=== PATIENT | male | born 1955 | race Caucasian/White ===

== ENCOUNTER 2017-09-18 21:06 | Emergency (ER) | payer BC ==
[~2017-09-18] VITALS: Ht 171.5 cm; Wt 92.4 kg
[2017-09-18 21:10] VITALS: TEMP 36.5; Ht 171.5 cm; Wt 92.4 kg
[2017-09-18] MEDS ORDERED: ONDANSETRON INJ 2 MG/ML 2 ML VIAL IV STA (21:18)
--- NOTE | 2017-09-18 21:25 | EMERGENCY ROOM VISIT NOTE ---
History Report prepared by Dean: John Godfrey Under the Supervision of: Dr. Terry Marcos D.O. First contact with patient: 21:14 Chief Complaint: KIDNEY STONE Stated Complaint: KIDNEY STONE R FLANK PAIN History of Present Illness The patient is a 62 year old male who presents to the Emergency Room with complaints of worsening right-sided flank pain that started 3 days ago. He states that he was in the [place] ED yesterday morning and was diagnosed with a 4 mm right distal ureter stone. He says that he has been taking Percocet , Zofran, and Flomax. The patient notes that the pain then worsened around 6 hours ago, and he has been having bad nausea with a few episodes of vomiting. He says that he last had Percocet around 5 hours ago. The patient adds that he has had some clots in his urine. He denies any fevers. The patient has a history of hypertension, hyperlipidemia, and hypothyroidism, and has a history of a right testicle removal. The patient does not drink alcohol or use tobacco products. Source of History: patient, family Onset: 3 days ago Position: other (right-sided flank) Quality: other (diagnosed with kidney stone) Timing: worsening Associated Symptoms: + nausea, + vomiting, + urinary symptoms (clots in urine), No fevers Review of Systems See HPI for pertinent positives & negatives. A total of 10 systems reviewed and were otherwise negative. Past Medical & Surgical Medical Problems: (1) HLD (hyperlipidemia) (2) HTN (hypertension) (3) Hypothyroidism Surgical Problems: (1) History of removal of testicle Family History No pertinent family history Social History Smoking Status: Never Smoker Smokeless Tobacco Use: No Alcohol Use: none Drug Use: none Current/Historical Medications Scheduled [id number]-Xiivmkeixve-Uqp C- (Glucosamine Chondroitin), 1 TAB PO QAM Hydrochlorothiazide (Hctz), 25 MG PO QAM Levothyroxine Sodium (Levothyroxine Sodium), 88 MCG PO QAM Lisinopril (Lisinopril), 5 MG PO QAM Potassium (Potassium), 396 MG PO QAM Pravastatin (Pravachol ), 20 MG PO HS Allergies Coded Allergies: No Known Allergies (Unverified , 09/18/17) Physical Exam Vital Signs Date Time Temp Pulse Resp B/P (MAP) Pulse Ox O2 Delivery O2 Flow Rate FiO2 09/18/17 22:44 61 16 119/75 94 Room Air 09/18/17 21:10 36.5 85 20 152/74 96 Room Air Physical Exam GENERAL: Patient is awake, alert, very anxious appearing. EYES: The conjunctivae are clear. The pupils are round and reactive. EARS, NOSE, MOUTH AND THROAT: The nose is without any evidence of any deformity. Mucous membranes are moist tongue is midline NECK: The neck is nontender and supple. RESPIRATORY: Normal respiratory effort is noted there is no evidence of wheezing rhonchi or rales CARDIOVASCULAR: Regular rate and rhythm noted there no murmurs rubs or gallops normal S1 normal S2 GASTROINTESTINAL: The abdomen is soft. Bowel sounds are present in all quadrants. Abdomen is nontender BACK: No midline tenderness appreciated. There was right CVA tenderness to percussion, range of motion appeared intact. MUSCULOSKELETAL/EXTREMITIES: There is no evidence of gross deformity full range of motion is noted in the hips and shoulders SKIN: There is no obvious evidence of any rash. There are no petechiae, pallor or cyanosis noted. NEUROLOGIC: Patient is awake alert and oriented x3. Medical Decision & Procedures ER Provider Diagnostic Interpretation: Radiology results as stated below per my review and radiologist interpretation: RETROPERITONEAL COMPLETE HISTORY: 62 years-old Male flank pain acute right-sided flank pain with cholelithiasis COMPARISON: KUB of same day TECHNIQUE: Multiple real-time sonographic images of the kidneys and urinary bladder were obtained assessing grayscale appearance and color flow FINDINGS: The right kidney measures 12.3 cm in length. Mild right-sided hydroureteronephrosis with proximal right ureter measuring 9 mm. No definite shadowing right-sided nephrolithiasis. No focal mass lesions noted within the right kidney. Cortical medullary differentiation preserved. Left kidney measures 11.0 cm in length. 4 mm calculus noted within the interpolar left kidney. No left-sided renal mass lesions or hydronephrosis. Urinary bladder is predominantly collapsed. IMPRESSION: 1. Mild right-sided hydroureteronephrosis suspicious for distal obstructing process. 2. 4 mm calculus of the interpolar left kidney without left-sided hydronephrosis. 3. Partially collapsed urinary bladder. The above report was generated using voice recognition software. It may contain grammatical, syntax or spelling errors. Electronically signed by: Pablito Maria M.D. 09/18/2017 10:56 PM Dictated Date/Time: 09/18/2017 10:54 PM KUB HISTORY: Acute right-sided abdominal pain with history of kidney stones ABDOMINAL PAIN/GI COMPARISON: None. FINDINGS: The bowel gas pattern is non-obstructive. There is no organomegaly. Bilateral nephrolithiasis with calculi measuring up to 3 mm on the left. There is either a single 4 mm or two separate 2 mm calcification within the right lower abdomen overlying the right L5 transverse process. Renal shadows are partially obscured by bowel gas. No pneumoperitoneum or pneumatosis. No fracture. IMPRESSION: 1. Bilateral nephrolithiasis with renal shadows partially obscured by bowel gas. 2. Either a single 4 mm or two separate 2 mm calcifications within the right lower abdomen overlying the right L5 transverse process suggest ureteral calculus or calculi. Electronically signed by: Pablito Maria M.D. 09/18/2017 10:12 PM Dictated Date/Time: 09/18/2017 10:08 PM Laboratory Results 09/18/17 21:30 Red Blood Count 4.60, Mean Corpuscular Volume 90.9, Mean Corpuscular Hemoglobin 32.2, Mean Corpuscular Hemoglobin Concent 35.4, Mean Platelet Volume 10.0, Neutrophils (%) (Auto) 84.6, Lymphocytes (%) (Auto) 6.4, Monocytes (%) (Auto) 7.7, Eosinophils (%) (Auto) 0.6, Basophils (%) (Auto) 0.5, Neutrophils # (Auto) 9.91, Lymphocytes # (Auto) 0.75, Monocytes # (Auto) 0.90, Eosinophils # (Auto) 0.07, Basophils # (Auto) 0.06 09/18/17 21:30 Test 09/18/17 00:00 09/18/17 21:30 Urine Color ORANGE Urine Appearance CLEAR (CLEAR) Urine pH 5.0 (4.5-7.5) Urine Specific [place] 1.016 (1.000-1.030) Urine Protein NEG (NEG) Urine Glucose (UA) NEG (NEG) Urine Ketones 1+ (NEG) Urine Occult Blood 3+ (NEG) Urine Nitrite NEG (NEG) Urine Bilirubin NEG (NEG) Urine Urobilinogen NEG (NEG) Urine Leukocyte Esterase SMALL (NEG) Urine WBC (Auto) 1-5 /hpf (0-5) Urine RBC (Auto) >30 /hpf (0-4) Urine Hyaline Casts (Auto) 1-5 /lpf (0-5) Urine Epithelial Cells (Auto) 0-5 /lpf (0-5) Urine Bacteria (Auto) NEG (NEG) White Blood Count 11.71 K/uL (4.8-10.8) Red Blood Count 4.60 M/uL (4.7-6.1) Hemoglobin 14.8 g/dL (14.0-18.0) Hematocrit 41.8 % (42-52) Mean Corpuscular Volume 90.9 fL (80-100) Mean Corpuscular Hemoglobin 32.2 pg (25-34) Mean Corpuscular Hemoglobin Concent 35.4 g/dl (32-36) Platelet Count 180 K/uL (130-400) Mean Platelet Volume 10.0 fL (7.4-10.4) Neutrophils (%) (Auto) 84.6 % Lymphocytes (%) (Auto) 6.4 % Monocytes (%) (Auto) 7.7 % Eosinophils (%) (Auto) 0.6 % Basophils (%) (Auto) 0.5 % Neutrophils # (Auto) 9.91 K/uL (1.4-6.5) Lymphocytes # (Auto) 0.75 K/uL (1.2-3.4) Monocytes # (Auto) 0.90 K/uL (0.11-0.59) Eosinophils # (Auto) 0.07 K/uL (0-0.5) Basophils # (Auto) 0.06 K/uL (0-0.2) RDW Standard Deviation 42.9 fL (36.4-46.3) RDW Coefficient of Variation 12.9 % (11.5-14.5) Immature Granulocyte % (Auto) 0.2 % Immature Granulocyte # (Auto) 0.02 K/uL (0.00-0.02) Anion Gap 9.0 mmol/L (3-11) Est Creatinine Clear Calc Drug Dose 66.8 ml/min Estimated GFR () 70.2 Estimated GFR (Non- 60.6 BUN/Creatinine Ratio 14.2 (10-20) Calcium Level 9.0 mg/dl (8.5-10.1) Total Bilirubin 0.5 mg/dl (0.2-1) Direct Bilirubin 0.1 mg/dl (0-0.2) Aspartate Amino Transf (AST/SGOT) 24 U/L (15-37) Alanine Aminotransferase (ALT/SGPT) 34 U/L (12-78) Alkaline Phosphatase 67 U/L (45-117) Total Protein 7.1 gm/dl (6.4-8.2) Albumin 3.6 gm/dl (3.4-5.0) Lipase 100 U/L (73-393) Laboratory results per my review. Medications Administered Medications (Trade) Dose Ordered Sig/Garden[place] Route Start Time Stop Time Status Last Admin Dose Admin Ondansetron HCl (Zofran Inj) 4 mg NOW STAT IV 09/18/17 21:18 09/18/17 21:20 DC 09/18/17 21:37 4 MG Morphine Sulfate (MoRPHine SULFATE INJ) 4 mg Q15M PRN IV 09/18/17 21:30 10/02/17 21:29 09/18/17 21:38 4 MG ED Course 2115: The patient was evaluated in room C5. A complete history and physical examination were performed. 2117: Ordered Zofran Inj 4 mg IV. 2129: Ordered Morphine Sulfate Inj 4 mg IV PRN. 2317: Upon reevaluation, the patient is feeling well. I discussed the results and treatment plan with him. He verbalized agreement of the treatment plan. He was discharged home. Medical Decision Differential diagnosis: Etiologies such as renal colic, appendicitis, diverticulitis, mesenteric ischemia, aortic pathology, infections, inflammatory bowel disease, PUD, biliary pathology, UTI, as well as others were entertained. Nursing notes reviewed. The patient is a 62-year-old male who presented to the emergency department for evaluation of right flank pain. The patient was recently diagnosed with a kidney stone. He states that he is seen at [facility] and diagnosed with a 4 millimeter distal right ureteral calculus. The patient was taking pain medication as well as Flomax. The patient states that his pain worsened this evening so he presented to the emergency department for an evaluation. He was treated with IV pain medicine IV antiemetics. On subsequent reevaluation he was feeling much better. I discussed patient's laboratory and radiographic studies with him. He did not have a fever. His urinalysis was not consistent with infection. I do feel he likely has an distal right ureteral calculus based on his radiographic studies as well as his history. He was encouraged to drink plenty clear liquids and call his primary urologist in the morning to schedule a follow-up appointment. Otherwise she was encouraged to return to the emergency department immediately if symptoms change worsen or the need arises. Medication Reconcilliation Current Medication List: was personally reviewed by me Blood Pressure Screening Patient's blood pressure: Normal blood pressure Impression Primary Impression: Kidney stone Additional Impression: Renal colic Scribe Attestation The scribe's documentation has been prepared under my direction and personally reviewed by me in its entirety. I confirm that the note above accurately reflects all work, treatment, procedures, and medical decision making performed by me. Departure Information Dispostion Home / Self-Care Referrals Awais Yoder M.D. Patient Instructions Kidney Stones, Kidney Stones [facility], [facility] Additional Instructions Continue all medications as prescribed. Drink plenty clear liquids. Call your primary urologist in the morning to schedule a follow-up appointment. Return to the emergency department immediately if symptoms change worsen or the need arises. Problem Qualifiers
[2017-09-18] MEDS ORDERED: MoRPHine SULFATE 4 MG/ML 1 ML CARP\\VIAL IV PRN (21:30)
[2017-09-18 21:42] LABS: BASO % 0.5 %; BASO ABS # 0.06 K/uL (0-0.2); COMPLETE YES; EOS % 0.6 %; HEMATOCRIT 41.8 % (42-52); IG% 0.2 %; LYMPH % 6.4 %; LYMPH ABS # 0.75 K/uL (1.2-3.4); MEAN CELL VOLUME 90.9 fL (80-100); MEAN CORPUSCULAR HEMOGLOBIN 32.2 pg (25-34); MEAN CORPUSCULAR HGB CONC 35.4 g/dl (32-36); MONO % 7.7 %; NEUT % 84.6 %; PLATELET COUNT 180 K/uL (130-400); WHITE BLOOD COUNT 11.71 K/uL (4.8-10.8)
[2017-09-18] MEDS ORDERED: HYDR25TA4 PO (21:56)
[2017-09-18] MEDS ORDERED: PRAV20TA PO (21:56)
[2017-09-18] MEDS ORDERED: POTA99TA PO (21:56)
[2017-09-18] MEDS ORDERED: LEVO88TA3 PO (21:56)
[2017-09-18] MEDS ORDERED: GLUCTAB7 PO (21:56)
[2017-09-18] MEDS ORDERED: LSN5 PO (21:56)
[2017-09-18 22:05] LABS: URINE APPEARANCE CLEAR (CLEAR); URINE BILIRUBIN NEG (NEG); URINE COLOR ORANGE; URINE EPITHELIAL CELL AUTO 0-5 /lpf (0-5); URINE NITRITE NEG (NEG); URINE SPECIFIC GRAVITY 1.016 (1.000-1.030); UROBILINOGEN NEG (NEG)
[2017-09-18 22:06] LABS: MANUAL MICROSCOPIC REQUIRED? NO; REVIEW REQ? NO
[2017-09-18 22:10] LABS: BUN/CREATININE RATIO 14.2 (10-20); CREATININE 1.27 mg/dl (0.60-1.40); POTASSIUM 3.3 mmol/L (3.5-5.1)
--- NOTE | 2017-09-18 22:14 | DIAGNOSTIC IMAGING REPORT ---
KUB HISTORY: Acute right-sided abdominal pain with history of kidney stones ABDOMINAL PAIN/GI COMPARISON: None. FINDINGS: The bowel gas pattern is non-obstructive. There is no organomegaly. Bilateral nephrolithiasis with calculi measuring up to 3 mm on the left. There is either a single 4 mm or two separate 2 mm calcification within the right lower abdomen overlying the right L5 transverse process. Renal shadows are partially obscured by bowel gas. No pneumoperitoneum or pneumatosis. No fracture. IMPRESSION: 1. Bilateral nephrolithiasis with renal shadows partially obscured by bowel gas. 2. Either a single 4 mm or two separate 2 mm calcifications within the right lower abdomen overlying the right L5 transverse process suggest ureteral calculus or calculi. Electronically signed by: Pablito Maria M.D. 09/18/2017 10:12 PM Dictated Date/Time: 09/18/2017 10:08 PM
[2017-09-18 22:44] VITALS: BP 119/75; PULSE 61; O2SAT 94
--- NOTE | 2017-09-18 22:58 | DIAGNOSTIC IMAGING REPORT ---
RETROPERITONEAL COMPLETE HISTORY: 62 years-old Male flank pain acute right-sided flank pain with cholelithiasis COMPARISON: KUB of same day TECHNIQUE: Multiple real-time sonographic images of the kidneys and urinary bladder were obtained assessing grayscale appearance and color flow FINDINGS: The right kidney measures 12.3 cm in length. Mild right-sided hydroureteronephrosis with proximal right ureter measuring 9 mm. No definite shadowing right-sided nephrolithiasis. No focal mass lesions noted within the right kidney. Cortical medullary differentiation preserved. Left kidney measures 11.0 cm in length. 4 mm calculus noted within the interpolar left kidney. No left-sided renal mass lesions or hydronephrosis. Urinary bladder is predominantly collapsed. IMPRESSION: 1. Mild right-sided hydroureteronephrosis suspicious for distal obstructing process. 2. 4 mm calculus of the interpolar left kidney without left-sided hydronephrosis. 3. Partially collapsed urinary bladder. The above report was generated using voice recognition software. It may contain grammatical, syntax or spelling errors. Electronically signed by: Pablito Maria M.D. 09/18/2017 10:56 PM Dictated Date/Time: 09/18/2017 10:54 PM
== END 2017-09-18 23:48 | disposition home or self-care (01) ==
LOC: C.EDB 21:07 → C.EDC 23:48
DX: N20.0 Calculus of kidney (principal); N23 Unspecified renal colic; I10 Essential (primary) hypertension; E03.9 Hypothyroidism, unspecified; E78.5 Hyperlipidemia, unspecified; Z98.890 Other specified postprocedural states; Z79.899 Other long term (current) drug therapy